=== PATIENT | female | born 1950 ===

== ENCOUNTER 2022-11-16 06:00 | Day surgery (SDC) | payer OTHER ==
[~2022-11-16] VITALS: Ht 167.6 cm; Wt 89.8 kg
[~2022-11-16 06:00] MED LIST: COZAAR100 MG PO; JANUMET 50-1,01 EACH PO; LABETALOL HCL200 MG PO; LANTUS SOL100 UNIT/1; ZESTRIL10 M1 PO
== END 2022-11-16 12:40 | disposition home or self-care (01) ==
LOC: CIR.AMB 06:00 → SURH 07:00 → CIR.AMB 09:45 → SURH 09:45 → EDSTATUS 09:45 → CIR.AMB 12:40
PROVIDERS: ATTEND Specialist
DX: K80.10 Calculus of gallbladder with chronic cholecystitis without obstruction (principal); I10 Essential (primary) hypertension; E11.9 Type 2 diabetes mellitus without complications; Z20.822 Contact with and (suspected) exposure to COVID-19